=== PATIENT | female | born 1955 | race Two or more races ===

== ENCOUNTER 2017-03-24 19:57 | Inpatient (IN) | payer OTHER ==
[~2017-03-24] VITALS: Ht 162.6 cm; Wt 78.5 kg
[~2017-03-24 19:57] MED LIST: ATOR20TA PO; CALC500T79 PO; ESOM40CA PO; FERR-58 PO; GABA300C PO; GEMF600T PO; GLYB1TAB2 PO; IBUP-785 PO; LORA0.5T PO; LORA10TA41 PO; LORA10TA50 PO; MECL-102 PO; METF850T2 PO; METO-302 PO; OMEP40CA37 PO; PARO20TA51 PO; PROP10TA10 PO; SIMV20TA6 PO; TAMO10TA4 PO; VENL75TA54 PO
[2017-03-24] MEDS ORDERED: IV NS 0.9% 1,000 ML BAG IV ONE ×3 (20:00→21:30)
[2017-03-24] MEDS ORDERED: ONDANSETRON HCL/PF 4 MG/2 ML VIAL IVP ONE (20:00)
--- NOTE | 2017-03-24 20:02 | NUR ---
PT NAYE FROM HOME TO ER BED 09. PRESENTS W/ FLU LIKE SYMPTOMS THAT STARTED THIS AM. PT TEMP 103 ORAL. PT IS TACHYCARDIC, DIAPHORETIC MEDICAL OFFICE MANAGER. ALSO C/O NAUSEA AND VOMITING. GOWNED AND PLACED ON MONITOR. AWAITING MD RIDER.
--- NOTE | 2017-03-24 20:05 | NUR ---
.DR HARDWICK AT BEDSIDE FOR EVAL
[2017-03-24] MEDS ORDERED: ONDANSETRON HCL/PF 4 MG/2 ML VIAL ONE (20:06)
--- NOTE | 2017-03-24 20:11 | NUR ---
IV LINE STARTED BLOOD DRAWN AND SENT TO LAB.
[2017-03-24 20:15] LABS: BASOPHILS # (AUTO) 0.1 /CMM (0.0-0.2); EOSINOPHILS % (AUTO) 0.2 % (0.0-6.0); HEMATOCRIT 40 % (33-45); HEMOGLOBIN 12.8 g/dL (11.5-14.8); LYMPHOCYTES # (AUTO) 1.4 /CMM (0.8-4.8); LYMPHOCYTES % (AUTO) 23.3 % (20.0-44.0); MEAN CORPUSCULAR HEMOGLOBIN 26 PG (26.0-33.0); MEAN CORPUSCULAR HGB CONC 32 g/dl (31.0-36.0); MEAN CORPUSCULAR VOLUME 79 fL (82-100); MONOCYTES % (AUTO) 0.5 % (2.0-12.0); NEUTROPHILS # (AUTO) 4.5 /CMM (1.8-8.9); PLATELET COUNT (AUTO) 222 /CMM (150-450); RDW COEFFICIENT OF VARIATION 16.5 (11.5-15.0)
--- NOTE | 2017-03-24 20:19 | NUR ---
RADIOLOGY AT BEDSIDE FOR CHEST XRAY.
[2017-03-24 20:30] LABS: CALCIUM, SERUM 10.1 mg/dL (8.5-10.1); CARBON DIOXIDE 21 mmol/L (21-32); CHLORIDE 104 mmol/L (98-107); CREATININE 1.2 mg/dL (0.6-1.3); GLUCOSE 115 mg/dL (74-106); POTASSIUM 3.6 mmol/L (3.5-5.1); SODIUM SERUM 139 mmol/L (136-145); UREA NITROGEN, BLOOD 9 mg/dL (7-18)
[2017-03-24 20:33] LABS: INR 0.99 (0.87-1.13); PROTHROMBIN TIME 10.3 SECS (9.5-12.7)
[2017-03-24 20:36] LABS: ALANINE AMINOTRANSFERASE 62 U/L (12-78); ALKALINE PHOSPHATASE 94 U/L (46-116); ASPARTATE AMINOTRANSFERASE 32 U/L (15-37); BILIRUBIN,DIRECT 0.2 mg/dL (0.0-0.2); BILIRUBIN,TOTAL 0.6 mg/dL (0.2-1.0); TOTAL PROTEIN, SERUM 8.8 g/dL (6.4-8.2)
[2017-03-24 20:38] LABS: TROPONIN I < 0.017 ng/mL (0.00-0.056)
[2017-03-24] MEDS ORDERED: CEFTRIAXONE 1GM BAG (ER ONLY) 50 ML IV ONE ×2 (20:45→21:00)
[2017-03-24] MEDS ORDERED: ACETAMINOPHEN ES 500 MG TABLET ONE (20:45)
[2017-03-24] MEDS ORDERED: ACETAMINOPHEN ES 500 MG TABLET PO ONE (21:00)
[2017-03-24 21:05] LABS: APPEARANCE,URINE Clear (CLEAR); BILIRUBIN,URINE Negative (NEGATIVE); BLOOD, URINE Moderate Ery/uL (NEGATIVE); COLOR,URINE Yellow (YELLOW); KETONES,URINE Trace (NEGATIVE); LEUKOCYTE ESTERASE ,URINE Small (NEGATIVE); NITRITE, URINE Positive (NEGATIVE); PROTEIN,URINE >=300 mg/dl (NEGATIVE); UGLUCOSE 500 MG/DL mg/dL (NEGATIVE); UROBILINOGEN,URINE 0.2 EU/dL (0.2)
--- NOTE | 2017-03-24 21:08 | NUR ---
PAGED DR NOVAK FOR PANEL ADMISSION
--- NOTE | 2017-03-24 21:08 | NUR ---
DR NOVAK CALLED BACK, TRANSFERRED CALL TO DR HARDWICK
--- NOTE | 2017-03-24 21:10 | NUR ---
CALLED NURSING GRAB SETTER FOR TELE BED
--- NOTE | 2017-03-24 21:17 | NUR ---
ORAL TEMP RECHECK 99.8
[2017-03-24 21:26] LABS: CLINITEST,URINE 1%
[2017-03-24 21:27] LABS: BACTERIA,URINE Moderate /HPF (None Seen); SQUAMOUS EPITHELIAL CELL,UR Few /HPF (None Seen)
[2017-03-24] MEDS ORDERED: INSULIN REGULAR, HUMAN 100 UNIT/ML 3 ML VIAL SQ PRN (21:30)
[2017-03-24] MEDS ORDERED: LEVOFLOXACIN 750 MG /D5W 150ML 750 MG in PREMIX 1 EA IV SCH (21:30)
[2017-03-24] MEDS ORDERED: LORAZEPAM 0.5 MG TABLET PO PRN (21:30)
[2017-03-24] MEDS ORDERED: OSELTAMIVIR PHOSPHATE 75 MG CAPSULE PO ONE (21:30)
[2017-03-24] MEDS ORDERED: DEXTROSE 50%-WATER 50 ML DISP.SYRIN IV PRN (21:30)
[2017-03-24] MEDS ORDERED: TAMOXIFEN CITRATE 10 MG TABLET PO SCH (21:30)
[2017-03-24] MEDS ORDERED: MORPHINE SULFATE INJ 2 MG/ML DISP.SYRIN IV PRN (21:30)
[2017-03-24] MEDS ORDERED: ZOLPIDEM TARTRATE 5 MG TABLET PO PRN (21:30)
[2017-03-24] MEDS ORDERED: ONDANSETRON HCL/PF 4 MG/2 ML VIAL IVP PRN (21:30)
--- NOTE | 2017-03-24 21:53 | NUR ---
REPORT GIVEN TO PEYTON. PT AWAITING TRANSFER TO FLOOR.
[2017-03-24 22:40] VITALS: BP 114/58
[2017-03-24 22:53] VITALS: BP 114/58
[2017-03-24] MEDS ORDERED: OSELTAMIVIR PHOSPHATE 75 MG CAPSULE ONE (23:01)
[2017-03-24] MEDS ORDERED: LEVOFLOXACIN 750 MG /D5W 150ML 150 ML IV ONE (23:06)
--- NOTE | 2017-03-24 23:15 | NUR ---
BLAST FURNACE BLOWER NOTE ADMITTED 61 YEARS OLD FEMALE PT FROM ER WITH THE DX OF SEPSIS BY DR NOVAK. PT IS A/O X 3 VIETNAMESE SPEAKING, BUT UNDERSTAND ESTONIAN. PT WITH TEMP NOTED. ER GAVE TYLENOL EARLIER, WILL CONTINUE TO MONITOR HER. NO SOB, NO DISTRESS OR DISCOMFORT NOTED. DENIES PAIN. ON TELE SINUS TACH HR 101. H/L IN RAC #18 G INTACT AND PATENT. ADMITTING ORDERS CHECKED AND CARRIED OUT. SKIN INTACT. FAMILY AT BED SIDE. SIDE RAILS UP X 2 AND CALL LIGHT WITHIN REACH. CONTINUE TO MONITOR HER.
[2017-03-24 23:20] VITALS: BP 99/52
[2017-03-24] MEDS: BLOOD SUGAR DIAGNOSTIC 1 EACH STRIP IN SCH (23:50)
--- NOTE | 2017-03-24 23:55 | NUR ---
FIELD SERVICE ENGINEER NOTE DR NOVAK INFORMED LACTIC ACID 4.3 NO NEW ORDER GIVEN. BS 202, PT STATES "I DID NOT EAT ANY THING ALL DAY AND DUE TO VOMITING". PER DR NOVAK DON'T GIVE COVERAGE AT THIS TIME AND CHECK BS IN THE MORNING.
[2017-03-25] VITALS (7 sets, daily range): BP systolic 91–113; BP diastolic 40–54
[2017-03-25] MEDS: BLOOD SUGAR DIAGNOSTIC 1 EACH STRIP IN SCH ×4 (06:02→21:38)
[2017-03-25 06:40] LABS: BASOPHILS % (AUTO) 0.3 % (0.0-2.0); EOSINOPHILS % (AUTO) 0.1 % (0.0-6.0); HEMATOCRIT 32 % (33-45); HEMOGLOBIN 10.8 g/dL (11.5-14.8); LYMPHOCYTES % (AUTO) 12.2 % (20.0-44.0); MEAN CORPUSCULAR HEMOGLOBIN 27 PG (26.0-33.0); MEAN CORPUSCULAR HGB CONC 33 g/dl (31.0-36.0); MEAN CORPUSCULAR VOLUME 80 fL (82-100); MONOCYTES # (AUTO) 0.8 /CMM (0.1-1.30); NEUTROPHILS # (AUTO) 13.6 /CMM (1.8-8.9); NEUTROPHILS % (AUTO) 82.4 % (43.0-81.0); PLATELET COUNT (AUTO) 171 /CMM (150-450); RDW COEFFICIENT OF VARIATION 17.3 (11.5-15.0); RED BLOOD CELL COUNT(AUTO) 4.04 MIL/uL (4.0-5.2); WHITE BLOOD COUNT (AUTO) 16.5 K/uL (4.3-11.0)
--- NOTE | 2017-03-25 06:44 | NUR ---
RN HOME HEALTH NOTE NO CHANGE IN CONDITION. PT ASLEEP, AROUSABLE. NO DISTRESS OR DISCOMFORT NOTED. DENIES PAIN. S/L INTACT AND PATENT. ON TELE SR 74. SIDE RAILS UP X 2 AND CALL LIGHT WITHIN REACH. WILL ENDORSE TO DAY SHIFT NURSE FOR CONTINUE TO CARE.
[2017-03-25 06:59] LABS: TROPONIN I < 0.017 ng/mL (0.00-0.056)
[2017-03-25 07:13] LABS: ALANINE AMINOTRANSFERASE 58 U/L (12-78); ALBUMIN 2.8 g/dL (3.4-5.0); ALKALINE PHOSPHATASE 71 U/L (46-116); ASPARTATE AMINOTRANSFERASE 34 U/L (15-37); BILIRUBIN,TOTAL 0.4 mg/dL (0.2-1.0); CALCIUM, SERUM 8.4 mg/dL (8.5-10.1); CARBON DIOXIDE 26 mmol/L (21-32); CHLORIDE 105 mmol/L (98-107); CREATININE 0.8 mg/dL (0.6-1.3); GLUCOSE 135 mg/dL (74-106); POTASSIUM 3.5 mmol/L (3.5-5.1); SODIUM SERUM 141 mmol/L (136-145); TOTAL PROTEIN, SERUM 6.9 g/dL (6.4-8.2); UREA NITROGEN, BLOOD 8 mg/dL (7-18)
[2017-03-25 07:18] LABS: INR 1.04 (0.87-1.13); PROTHROMBIN TIME 11.2 SECS (9.5-12.7)
[2017-03-25 07:52] LABS: CREATINE KINASE MB 0.7 ng/mL (0-3.6)
[2017-03-25] MEDS: GEMFIBROZIL 600 MG TABLET PO SCH (09:00)
[2017-03-25] MEDS: PAROXETINE HCL 20 MG TABLET PO SCH ×2 (09:00→10:24)
[2017-03-25] MEDS: METOPROLOL SUCCINATE 25 MG TAB.SR.24H PO SCH (09:00)
[2017-03-25] MEDS: GABAPENTIN 300 MG CAPSULE PO SCH ×2 (09:00→10:24)
[2017-03-25] MEDS ORDERED: MECLIZINE HCL 25 MG TABLET PO SCH (09:00)
[2017-03-25] MEDS: FERROUS SULFATE (325 MG) 325 MG/TAB TABLET PO SCH ×3 (09:00→17:00)
[2017-03-25] MEDS: VENLAFAXINE 37.5 MG TABLET PO SCH (09:49)
[2017-03-25] MEDS: PANTOPRAZOLE 40 MG VIAL IV SCH (10:24)
[2017-03-25] MEDS: LORATADINE 10 MG TABLET PO SCH (10:25)
[2017-03-25] MEDS: METFORMIN 850 MG TABLET PO SCH ×2 (10:46→17:41)
[2017-03-25] MEDS ORDERED: FEE PK DOSING 1 MIN EA MC ONE (10:50)
[2017-03-25] MEDS: VANCOMYCIN 1 GM in IV D5W 250 ML IV SCH (12:21)
[2017-03-25] MEDS ORDERED: MECLIZINE HCL 25 MG TABLET PO PRN (12:57)
[2017-03-25] MEDS: PROPRANOLOL HCL 10 MG TABLET PO SCH (12:58)
[2017-03-25] MEDS ORDERED: MAGNESIUM HYDROXIDE 30 ML UDC PO PRN (18:00)
[2017-03-25] MEDS ORDERED: SIMVASTATIN 20 MG TABLET PO SCH (18:00)
--- NOTE | 2017-03-25 19:15 | NUR ---
RN INITIAL NOTES RECEIVED PATIENT IN BED, AWAKE AND ALERT. PATIENT IS AMBULATORY WITH STEADY GAIT NOTED. ASSISTED WITH ADLS NEEDED. PATIENT DENIES ANY PAIN AND DISCOMFORT. SR ON TELE WITH HR OF 85. ON ROOM AIR, RESPIRATION IS EVEN AND UNLABORED WITH NO DISTRESS. WITH R AC, G18, FLUSHED AND PATENT, NO SIGNS OF INFILTRATION. PATIENT'S NEEDS ANTICIPATED AND MET. SAFETY AND COMFORT ENSURED. BED IN LOW AND LOCKED POSITION. CALL LIGHT IN REACH. WILL MONITOR.
[2017-03-25] MEDS: LEVOFLOXACIN 750 MG /D5W 150ML 750 MG in PREMIX 1 EA IV SCH (21:25)
[2017-03-25] MEDS: ACETAMINOPHEN 325 MG TABLET PO PRN (21:28)
[2017-03-25] MEDS: DOCUSATE SODIUM 250 MG CAPSULE PO SCH (21:38)
--- NOTE | 2017-03-25 21:40 | NUR ---
RN NOTES CZ=[id number]. PATIENT REFUSED INSULIN TO BE ADMINISTERED. PER PATIENT, SHE IS TAKING PO ANTI DIABETIC MEDICATIONS AND THOSE WERE THE ONES THAT HER SPECIALIST HAS RECOMMENDED. PATIENT'S RIGHTS RESPECTED. PATIENT IS ALERT AND ORIENTED X4, AWARE AND KNOWLEDGEABLE OF HER MEDICATIONS. CN MADE AWARE.
--- NOTE | 2017-03-25 23:37 | NUR ---
RN NOTES PATIENT IN BED, NO DISTRESS. DVT PUMPS IN PLACE. NC AT 2LPM OF O2 VIA NC PLACED FOR COMFORT. PATIENT'S NEEDS ANTICIPATED AND MET. SAFETY AND COMFORT ENSURED. CALL LIGHT IN REACH.
[2017-03-26] VITALS: BP 112/62
[2017-03-26] MEDS: VANCOMYCIN 1 GM in IV D5W 250 ML IV SCH ×2 (00:28→11:52)
[2017-03-26 04:00] VITALS: BP 99/50
--- NOTE | 2017-03-26 06:37 | NUR ---
RN CLOSING NOTES PATIENT WITH NO ACUTE CHANGE IN CONDITION OBSERVED OVERNIGHT. REMAINS SR ON TELE. PATIENT'S NEEDS ANTICIPATED AND MET. SAFETY AND COMFORT ENSURED. BED IN LOW AND LOCKED POSITION. ALL DUE MEDS GIVEN ORDERED. WILL ENDORSED ACCORDINGLY FOR CONTINUITY OF CARE.
[2017-03-26 06:58] LABS: CALCIUM, SERUM 8.5 mg/dL (8.5-10.1); CREATININE 0.7 mg/dL (0.6-1.3); POTASSIUM 3.4 mmol/L (3.5-5.1)
[2017-03-26 08:00] VITALS: BP 106/62
--- NOTE | 2017-03-26 08:00 | NUR ---
TELE1/RN AM SHIFT INITIAL NOTES RECEIVED PT ASLEEP IN BED, AROUSEABLE, PT A/O X 4, NO ACUTE CHANGE OF CONDITION. PT DENIES ANY PAIN, NO COMPLAINTS. ON CURTIS AIR SATURATING @ 93%, LUNG SOUNDS CLEAR. ON TELE WITH SINUS RHYTHM, HR 86. IV SITE FLUSHED, PATENT, NO S/S OF INFECTION, SL. BLOOD GLUCOSE CHECKED, RESULT 128, NO COVERAGE TO BE GIVEN PER INSULIN PROTOCOL. PT IS COMFORTABLE AT THIS TIME. SCHEDULED AM MEDS TO BE GIVEN. CL WITHIN REACHED, SAFETY MAINTAINED AND ISOLATION OBSERVED. ON GOING MONITORING.
[2017-03-26] MEDS: BLOOD SUGAR DIAGNOSTIC 1 EACH STRIP IN SCH ×4 (08:04→21:24)
[2017-03-26] MEDS: PANTOPRAZOLE 40 MG VIAL IV SCH (08:38)
[2017-03-26] MEDS: FERROUS SULFATE (325 MG) 325 MG/TAB TABLET PO SCH ×2 (08:38→16:54)
[2017-03-26] MEDS: PAROXETINE HCL 20 MG TABLET PO SCH (08:39)
[2017-03-26] MEDS: LORATADINE 10 MG TABLET PO SCH (08:39)
[2017-03-26] MEDS: VENLAFAXINE 37.5 MG TABLET PO SCH (08:39)
[2017-03-26] MEDS: METOPROLOL SUCCINATE 25 MG TAB.SR.24H PO SCH (08:39)
[2017-03-26] MEDS: GABAPENTIN 300 MG CAPSULE PO SCH (08:40)
[2017-03-26] MEDS: METFORMIN 850 MG TABLET PO SCH ×2 (08:40→16:54)
[2017-03-26] MEDS: GEMFIBROZIL 600 MG TABLET PO SCH (08:40)
[2017-03-26] MEDS: PROPRANOLOL HCL 10 MG TABLET PO SCH (08:40)
[2017-03-26] MEDS: ATORVASTATIN 10 MG TABLET PO SCH (08:43)
--- NOTE | 2017-03-26 11:50 | NUR ---
TELE1/RN BLOOD GLUCOSE CHECK NO ACUTE CHANGE OF CONDITION. BLOOD GLUCOSE CHECKED, RESULT 169. PT REFUSED INSULIN COVERAGE. NO S/S OF HYPO OR HYPERGLYCEMIA. ON GOING MONITORING.
[2017-03-26 12:00] VITALS: BP 128/77
[2017-03-26] MEDS ORDERED: POTASSIUM CHLORIDE 20 MEQ TAB.PRT.SR PO SCH (12:00)
--- NOTE | 2017-03-26 12:45 | NUR ---
TELE1/RN ROUNDS - RON, MARY PT SEEN & EXAMINED BY RON HERNANDEZ. NO NEW ORDERS RECEIVED AT THIS TIME. NO CHANGE OF CONDITION. MONITORING CONTINUED.
[2017-03-26] MEDS ORDERED: MAGNESIUM HYDROXIDE 30 ML UDC PO ONE (13:30)
[2017-03-26 16:00] VITALS: BP 119/67
[2017-03-26] MEDS: ACETAMINOPHEN 325 MG TABLET PO PRN (17:51)
--- NOTE | 2017-03-26 19:22 | NUR ---
TELE1/RN AM SHIFT END NOTES ALL NEEDS MET. NO ACUTE CHANGE OF CONDITION NOTED DURING SHIFT. IV SITE INTACT AND PATENT. PT ENDORSED TO PM NURSE TO CONTINUE CARE. CL WITHIN REACHED AND SAFETY MAINTAINED.
--- NOTE | 2017-03-26 19:30 | NUR ---
TELE1/RN PM SHIFT INITIAL NOTES RECEIVED PT AWAKE IN BED, PT A/O X 4, NO ACUTE CHANGE OF CONDITION. PT DENIES ANY PAIN, NO COMPLAINTS. ON ROOM AIR SATURATING @ 95%, LUNG SOUNDS CLEAR. ON TELE WITH SINUS RHYTHM, HR 86. IV SITE FLUSHED, PATENT, NO S/S OF INFECTION, SL. PT IS COMFORTABLE AT THIS TIME. SCHEDULED AM MEDS TO BE GIVEN. CL WITHIN REACHED, SAFETY MAINTAINED AND ISOLATION OBSERVED. ON GOING MONITORING.
[2017-03-26 20:00] VITALS: BP 123/63
[2017-03-26] MEDS: DOCUSATE SODIUM 250 MG CAPSULE PO SCH (21:24)
[2017-03-26] MEDS: LEVOFLOXACIN 750 MG /D5W 150ML 750 MG in PREMIX 1 EA IV SCH (21:24)
[2017-03-27] VITALS: BP 123/63
[2017-03-27] MEDS: VANCOMYCIN 1 GM in IV D5W 250 ML IV SCH ×2 (00:27→11:43)
[2017-03-27 04:00] VITALS: BP 133/81
--- NOTE | 2017-03-27 06:12 | NUR ---
TUMBLER TENDER NOTE PATIENT STABLE. ALL NEEDS MET AND ATTENDED TO. WILL ENDORSE TO DAY SHIFT FOR NICOLAS.
[2017-03-27 06:30] LABS: BASOPHILS % (AUTO) 0.2 % (0.0-2.0); EOSINOPHILS # (AUTO) 0.2 /CMM (0.0-0.7); EOSINOPHILS % (AUTO) 2.8 % (0.0-6.0); HEMATOCRIT 34 % (33-45); HEMOGLOBIN 11.1 g/dL (11.5-14.8); LYMPHOCYTES # (AUTO) 2.4 /CMM (0.8-4.8); LYMPHOCYTES % (AUTO) 30.4 % (20.0-44.0); MEAN CORPUSCULAR HEMOGLOBIN 26 PG (26.0-33.0); MEAN CORPUSCULAR HGB CONC 33 g/dl (31.0-36.0); MEAN CORPUSCULAR VOLUME 79 fL (82-100); MONOCYTES # (AUTO) 0.9 /CMM (0.1-1.30); NEUTROPHILS # (AUTO) 4.3 /CMM (1.8-8.9); NEUTROPHILS % (AUTO) 55.6 % (43.0-81.0); PLATELET COUNT (AUTO) 169 /CMM (150-450); RDW COEFFICIENT OF VARIATION 17.4 (11.5-15.0); RED BLOOD CELL COUNT(AUTO) 4.24 MIL/uL (4.0-5.2); WHITE BLOOD COUNT (AUTO) 7.8 K/uL (4.3-11.0)
[2017-03-27] MEDS: BLOOD SUGAR DIAGNOSTIC 1 EACH STRIP IN SCH ×2 (06:31→11:49)
--- NOTE | 2017-03-27 06:33 | NUR ---
telecommunications administrator note blood sugar 166. Patient refusing insulin coverage.
[2017-03-27 06:52] LABS: CALCIUM, SERUM 8.7 mg/dL (8.5-10.1); CREATININE 0.6 mg/dL (0.6-1.3); POTASSIUM 3.6 mmol/L (3.5-5.1)
--- NOTE | 2017-03-27 07:00 | NUR ---
RN INITIAL NOTE REPORT RECEIVED FROM JOSE PM SHIFT. PT A/O X4. RESTING COMFORTABLY. PT ON RA NO C/O SOB TELE SR 67. IV RAC # 18 SL. WILL CONTINUE TO MONITOR. ALL SAFETY MEASURES IN PLACE. PAIN 0/10.
[2017-03-27 08:00] VITALS: BP 124/76
[2017-03-27] MEDS: PANTOPRAZOLE 40 MG VIAL IV SCH (08:17)
[2017-03-27] MEDS: GEMFIBROZIL 600 MG TABLET PO SCH (08:17)
[2017-03-27] MEDS: LORATADINE 10 MG TABLET PO SCH (08:18)
[2017-03-27] MEDS: FERROUS SULFATE (325 MG) 325 MG/TAB TABLET PO SCH (08:18)
[2017-03-27] MEDS: METFORMIN 850 MG TABLET PO SCH (08:18)
[2017-03-27] MEDS: ATORVASTATIN 10 MG TABLET PO SCH (08:18)
[2017-03-27] MEDS: VENLAFAXINE 37.5 MG TABLET PO SCH (08:22)
[2017-03-27] MEDS: PROPRANOLOL HCL 10 MG TABLET PO SCH (08:22)
[2017-03-27] MEDS: PAROXETINE HCL 20 MG TABLET PO SCH (08:23)
[2017-03-27] MEDS: METOPROLOL SUCCINATE 25 MG TAB.SR.24H PO SCH (08:23)
[2017-03-27] MEDS: GABAPENTIN 300 MG CAPSULE PO SCH (08:23)
--- NOTE | 2017-03-27 08:27 | NUR ---
RN NOTE PT REFUSED B/P MEDICATIONS, WELL OTHER MEDICATIONS. DID NOT ADMINISTER PER PT SEE EMAR.
--- NOTE | 2017-03-27 11:29 | NUR ---
RN NOTE PT B.S. 162 DECLINED COVERAGE OF INSULIN. EDUCATED PT ON IMPORTANCE .
[2017-03-27] MEDS: ACETAMINOPHEN 325 MG TABLET PO PRN (11:55)
[2017-03-27 12:00] VITALS: BP 110/77
--- NOTE | 2017-03-27 13:31 | NUR ---
VENDING SERVICE TECHNICIAN NOTE PT DC HOME. TRANSPORTED VIA PRIVATE CAR BY . ID BAND AND IV REMOVED. ALL DC INSTRUCTIONS GIVEN. ALL QUESTIONS ANSWERED AND BELONGING LIST SIGNED. EDUCATED ON IMPORTANCE OF TAKE ABX 10 DAYS AND MAKING F/U APPT 1-2 WKS. SKIN INTACT. PT CLEAN AND DRY. WALKED PT OUT WITH . ALL ORDERS CARRIED OUT. RX FAXED TO PHARMACY AND GIVEN TO PT.
[2017-03-28] MEDS ORDERED: VANCOMYCIN 1.5 GM in IV D5W 500 ML IV SCH ×2
== END 2017-03-27 13:38 | disposition home or self-care (01) | DRG 720 ==
LOC: ER 19:58 → TELE1 21:32
PROVIDERS: ADMIT Internal Medicine; ATTEND Internal Medicine
DX: A41.9 Sepsis, unspecified organism (principal); R53.2 Functional quadriplegia; E44.0 Moderate protein-calorie malnutrition; E87.2 Acidosis; E11.40 Type 2 diabetes mellitus with diabetic neuropathy, unspecified; B96.20 Unspecified Escherichia coli [E. coli] as the cause of diseases classified elsewhere; D63.8 Anemia in other chronic diseases classified elsewhere; E66.9 Obesity, unspecified; E78.5 Hyperlipidemia, unspecified; F32.9 Major depressive disorder, single episode, unspecified; I10 Essential (primary) hypertension; Z79.899 Other long term (current) drug therapy; Z85.3 Personal history of malignant neoplasm of breast; R53.1 Weakness; K52.9 Noninfective gastroenteritis and colitis, unspecified; Z68.29 Body mass index [BMI] 29.0-29.9, adult; D50.9 Iron deficiency anemia, unspecified; N12 Tubulo-interstitial nephritis, not specified as acute or chronic; Z79.84 Long term (current) use of oral hypoglycemic drugs
CPT/HCPCS: 36415; 71010-TC; 80048-TC; 80053-TC; 80076-TC; 80202-TC; 81000-TC; 82553-TC; 82962-TC; 83605-TC; 84484-TC; 85025-TC; 85385-TC; 85610-TC; 85730-TC; 87040-TC; 87081-TC; 87086-TC; 87186-TC; 87400; 93307-TC; 97001-TC; A4216; C9113; J0696; J1815; J1956; J2405; J3370; J7030; J7040; J7060; J8597

== ENCOUNTER 2018-09-26 18:39 | Emergency (ER) | payer MEDICAID, OTHER ==
[~2018-09-26] VITALS: Ht 162.6 cm; Wt 72.6 kg
[~2018-09-26 18:39] MED LIST changes: -FERR-58 PO; +FERR325T24 PO; +LORA-588 PO; -LORA10TA50 PO; +METF-441 PO; -METF850T2 PO; -METO-302 PO; +METO-356 PO; +PARO-64 PO; -PARO20TA51 PO
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
[2018-09-26 21:32] VITALS: BP 120/67
[2018-09-26 21:53] LABS: BASOPHILS # (AUTO) 0.1 /CMM (0.0-0.2); BASOPHILS % (AUTO) 0.4 % (0.0-2.0); EOSINOPHILS % (AUTO) 0.1 % (0.0-6.0); HEMATOCRIT 43 % (33-45); HEMOGLOBIN 14.3 g/dL (11.5-14.8); LYMPHOCYTES # (AUTO) 2.1 /CMM (0.8-4.8); LYMPHOCYTES % (AUTO) 9.9 % (20.0-44.0); MEAN CORPUSCULAR HGB CONC 33 g/dl (31.0-36.0); MEAN CORPUSCULAR VOLUME 84 fL (82-100); MONOCYTES # (AUTO) 1.4 /CMM (0.1-1.30); MONOCYTES % (AUTO) 6.4 % (2.0-12.0); NEUTROPHILS # (AUTO) 17.9 /CMM (1.8-8.9); NEUTROPHILS % (AUTO) 83.2 % (43.0-81.0); PLATELET COUNT (AUTO) 237 /CMM (150-450); WHITE BLOOD COUNT (AUTO) 21.6 K/uL (4.3-11.0)
[2018-09-26 22:00] LABS: CALCIUM, SERUM 10.2 mg/dL (8.5-10.1); CARBON DIOXIDE 21 mmol/L (21-32); CHLORIDE 103 mmol/L (98-107); CREATININE 0.9 mg/dL (0.6-1.3); GLUCOSE 200 mg/dL (74-106); POTASSIUM 3.7 mmol/L (3.5-5.1); SODIUM SERUM 137 mmol/L (136-145); UREA NITROGEN, BLOOD 12 mg/dL (7-18)
[2018-09-26 22:06] LABS: ALANINE AMINOTRANSFERASE 68 U/L (12-78); ALBUMIN 3.7 g/dL (3.4-5.0); ALKALINE PHOSPHATASE 101 U/L (46-116); ASPARTATE AMINOTRANSFERASE 19 U/L (15-37); BILIRUBIN,DIRECT 0.1 mg/dL (0.0-0.2); BILIRUBIN,TOTAL 0.3 mg/dL (0.2-1.0); TOTAL PROTEIN, SERUM 7.6 g/dL (6.4-8.2)
[2018-09-26] MEDS ORDERED: CT SWABBABLE VALVE TRANS SET 1 EA INFUS.SET MC ONE (22:22)
[2018-09-26] MEDS ORDERED: IOHEXOL-300 100 ML VIAL IV ONE (22:22)
[2018-09-26 23:20] LABS: LYMPHOCYTES % (MANUAL) 12 % (16-48); MONOCYTES % (MANUAL) 7 % (0-11.0); NEUTROPHILS % (MANUAL) 81 (42-76)
--- NOTE | 2018-09-26 23:54 | NUR ---
PT IS GOING TO 115-1 TELE
== END 2018-09-27 00:15 | disposition home or self-care (01) ==
LOC: ER 18:42
DX: S29.012A Strain of muscle and tendon of back wall of thorax, initial encounter (principal); S16.1XXA Strain of muscle, fascia and tendon at neck level, initial encounter; S30.811A Abrasion of abdominal wall, initial encounter; E04.1 Nontoxic single thyroid nodule; D72.829 Elevated white blood cell count, unspecified; E11.9 Type 2 diabetes mellitus without complications; I10 Essential (primary) hypertension; E78.00 Pure hypercholesterolemia, unspecified; Z85.3 Personal history of malignant neoplasm of breast; Z98.890 Other specified postprocedural states; Z79.84 Long term (current) use of oral hypoglycemic drugs; Z79.899 Other long term (current) drug therapy; V43.64XA Car passenger injured in collision with van in traffic accident, initial encounter; Y93.89 Activity, other specified; Y92.413 State road as the place of occurrence of the external cause; Y99.8 Other external cause status
CPT/HCPCS: 36415; 70450; 71045; 72125; 74177; 80048; 80076; 84484; 85025; 85730; 99284; A4606; L0172; Q9967; Z7610

== ENCOUNTER 2018-12-29 10:14 | Emergency (ER) | payer OTHER ==
[~2018-12-29] VITALS: Ht 162.6 cm; Wt 74.8 kg
[2018-12-29 10:18] VITALS: BP 122/78
--- NOTE | 2018-12-29 10:30 | NUR ---
Patient discharged to home in stable condition. Written and verbal after care instructions given. Patient verbalizes understanding of instruction.
== END 2018-12-29 10:34 | disposition home or self-care (01) ==
LOC: ER 10:14
DX: L50.9 Urticaria, unspecified (principal); I10 Essential (primary) hypertension; E11.9 Type 2 diabetes mellitus without complications; E78.00 Pure hypercholesterolemia, unspecified; Z85.3 Personal history of malignant neoplasm of breast; Z98.890 Other specified postprocedural states
CPT/HCPCS: Z7502

== ENCOUNTER 2019-09-14 16:21 | Emergency (ER) | payer OTHER ==
[~2019-09-14] VITALS: Ht 157.5 cm; Wt 74.8 kg
[~2019-09-14 16:21] MED LIST changes: -MECL-102 PO; +MECL-159 PO; -METO-356 PO; +METO25TA4 PO; +OMEP40CA13 PO; -OMEP40CA37 PO; +SIMV-46 PO; -SIMV20TA6 PO; +TAMO10TA20 PO; -TAMO10TA4 PO
[2019-09-14 16:48] VITALS: BP 135/76
--- NOTE | 2019-09-14 16:56 | NUR ---
PT CAME INTO THE ED C/O GENERALIZED HIVES, +ITCHING. PT AAOX4, VSS, BREATHING EVEN AND UNLABORED ON ROOM AIR W/ NAD NOTED. PT CONENCTED TO THE MONITOR AND POX
[2019-09-14] MEDS ORDERED: diphenhydrAMINE HCL 50 MG/ML VIAL IM ONE (17:00)
[2019-09-14] MEDS ORDERED: DEXAMETHASONE SOD PHOSPHATE 10 MG/ML VIAL IM ONE (17:00)
[2019-09-14] MEDS ORDERED: DEXAMETHASONE SOD PHOSPHATE 10 MG/ML VIAL ONE (17:00)
[2019-09-14] MEDS ORDERED: diphenhydrAMINE HCL 50 MG/ML VIAL ONE (17:01)
--- NOTE | 2019-09-14 18:09 | NUR ---
Patient discharged to home in stable condition. Written and verbal after care instructions given. Patient verbalizes understanding of instruction.
== END 2019-09-14 18:10 | disposition home or self-care (01) ==
LOC: ER 16:22
DX: R21 Rash and other nonspecific skin eruption (principal); I10 Essential (primary) hypertension; E11.9 Type 2 diabetes mellitus without complications; Z98.890 Other specified postprocedural states; Z85.3 Personal history of malignant neoplasm of breast; Z79.899 Other long term (current) drug therapy; Z79.84 Long term (current) use of oral hypoglycemic drugs
CPT/HCPCS: 96372; 99283; J1100; J1200

== ENCOUNTER 2019-09-30 14:56 | Emergency (ER) | payer OTHER ==
[~2019-09-30] VITALS: Ht 165.1 cm; Wt 71.7 kg
[2019-09-30] MEDS ORDERED: KETOROLAC TROMETHAMINE 15 MG/ML VIAL ONE (15:44)
[2019-09-30 15:50] LABS: BASOPHILS # (AUTO) 0.1 /CMM (0.0-0.2); BASOPHILS % (AUTO) 0.6 % (0.0-2.0); EOSINOPHILS % (AUTO) 1.2 % (0.0-6.0); HEMATOCRIT 45 % (33-45); LYMPHOCYTES # (AUTO) 2.6 /CMM (0.8-4.8); LYMPHOCYTES % (AUTO) 26.8 % (20.0-44.0); MEAN CORPUSCULAR HGB CONC 33 g/dl (31.0-36.0); MEAN CORPUSCULAR VOLUME 91 fL (82-100); MONOCYTES # (AUTO) 0.6 /CMM (0.1-1.30); MONOCYTES % (AUTO) 5.9 % (2.0-12.0); NEUTROPHILS # (AUTO) 6.3 /CMM (1.8-8.9); NEUTROPHILS % (AUTO) 65.5 % (43.0-81.0); PLATELET COUNT (AUTO) 208 /CMM (150-450); RED BLOOD CELL COUNT(AUTO) 4.94 MIL/uL (4.0-5.2); WHITE BLOOD COUNT (AUTO) 9.5 K/uL (4.3-11.0)
[2019-09-30] MEDS: KETOROLAC TROMETHAMINE INJ 30 MG/ML VIAL IV ONE (15:57)
[2019-09-30 15:58] LABS: CALCIUM, SERUM 9.9 mg/dL (8.5-10.1); CREATININE 0.7 mg/dL (0.6-1.3); POTASSIUM 4.5 mmol/L (3.5-5.1)
--- NOTE | 2019-09-30 16:00 | NUR ---
patient came in to the er c/o lower back pain, non traumatic, also generalized rash. On rooma ir, breathing evenly and unlabored. connected to the monitor and pulse ox. kept comfortable, will continue to monitor accordingly.
[2019-09-30 16:03] LABS: ALBUMIN 3.8 g/dL (3.4-5.0); BILIRUBIN,DIRECT 0.1 mg/dL (0.0-0.2); BILIRUBIN,TOTAL 0.5 mg/dL (0.2-1.0); TOTAL PROTEIN, SERUM 7.6 g/dL (6.4-8.2)
[2019-09-30 17:02] LABS: APPEARANCE,URINE Clear (CLEAR); BILIRUBIN,URINE Negative (NEGATIVE); BLOOD, URINE Negative Ery/uL (NEGATIVE); COLOR,URINE Yellow (YELLOW); KETONES,URINE Negative (NEGATIVE); LEUKOCYTE ESTERASE ,URINE Negative (NEGATIVE); NITRITE, URINE Negative (NEGATIVE); PROTEIN,URINE Negative (NEGATIVE); UGLUCOSE 500 MG/DL mg/dL (NEGATIVE); UROBILINOGEN,URINE 0.2 EU/dL (0.2)
[2019-09-30 18:15] VITALS: BP 118/71
--- NOTE | 2019-09-30 18:16 | NUR ---
Patient discharged to home in stable condition. Written and verbal after care instructions given. Patient verbalizes understanding of instruction.IV removed. Catheter intact and site benign. Pressure and 4x4 applied to site. No bleeding noted.
== END 2019-09-30 18:15 | disposition home or self-care (01) ==
LOC: ER 15:00
DX: M54.5 Low back pain (principal); I10 Essential (primary) hypertension; E11.9 Type 2 diabetes mellitus without complications; E78.5 Hyperlipidemia, unspecified; F32.9 Major depressive disorder, single episode, unspecified; Z85.3 Personal history of malignant neoplasm of breast; Z98.890 Other specified postprocedural states; Z79.899 Other long term (current) drug therapy
CPT/HCPCS: 36415; 80048; 80076; 81001; 83690; 85025; 96374; 99283; J1885; 81000-TC

== ENCOUNTER 2024-08-14 14:01 | Emergency (ER) | payer MEDICARE, OTHER ==
[~2024-08-14] VITALS: Ht 162.6 cm; Wt 74.8 kg
[~2024-08-14 14:01] MED LIST changes: -LORA-588 PO; +LORA-672 PO; -OMEP40CA13 PO; +OMEP40CA21 PO
[2024-08-14 14:17] VITALS: BP 101/61; TEMP 98.7; O2SAT 97
[2024-08-14] MEDS: diphenhydrAMINE HCL 25 MG CAPSULE PO ONE (14:30)
[2024-08-14] MEDS: methylPREDNISolone ACETATE 80 MG/ML VIAL IM ONE (14:30)
[2024-08-14] MEDS ORDERED: methylPREDNISolone ACETATE 80 MG/ML VIAL ONE (14:36)
[2024-08-14] MEDS ORDERED: diphenhydrAMINE HCL 50 MG CAPSULE ONE (14:36)
[2024-08-14] MEDS ORDERED: PRED20TA PO (14:48)
[2024-08-14] MEDS ORDERED: AMOX-430 PO (14:48)
== END 2024-08-14 15:01 | disposition home or self-care (01) ==
LOC: ER 14:12
DX: T78.40XA Allergy, unspecified, initial encounter (principal); H66.93 Otitis media, unspecified, bilateral; L50.9 Urticaria, unspecified; I10 Essential (primary) hypertension; E11.9 Type 2 diabetes mellitus without complications; Z79.84 Long term (current) use of oral hypoglycemic drugs; Z79.899 Other long term (current) drug therapy; Z85.3 Personal history of malignant neoplasm of breast; X58.XXXA Exposure to other specified factors, initial encounter
CPT/HCPCS: 99283; 96372; J1010; Q0163

== ENCOUNTER 2024-09-17 13:30 | Emergency (ER) | payer MEDICARE, OTHER ==
[~2024-09-17] VITALS: Ht 162.6 cm; Wt 72.6 kg
[~2024-09-17 13:30] MED LIST changes: +AMOX-430 PO; +PRED20TA PO
[2024-09-17 15:36] VITALS: BP 110/54; TEMP 97.9; O2SAT 100
[2024-09-17] MEDS ORDERED: DIPH25CA83 PO (15:56)
[2024-09-17] MEDS ORDERED: PRED20TA PO (15:56)
[2024-09-17] MEDS ORDERED: FAMO40TA7 PO (15:56)
== END 2024-09-17 16:01 | disposition home or self-care (01) ==
LOC: ER 13:49
DX: L50.9 Urticaria, unspecified (principal); K21.9 Gastro-esophageal reflux disease without esophagitis; E11.9 Type 2 diabetes mellitus without complications; I10 Essential (primary) hypertension; Z79.52 Long term (current) use of systemic steroids; Z79.84 Long term (current) use of oral hypoglycemic drugs; Z79.899 Other long term (current) drug therapy; Z85.3 Personal history of malignant neoplasm of breast; Z87.39 Personal history of other diseases of the musculoskeletal system and connective tissue; Z86.59 Personal history of other mental and behavioral disorders

== ENCOUNTER 2024-10-22 10:49 | Emergency (ER) | payer MEDICARE, OTHER ==
[~2024-10-22] VITALS: Ht 162.6 cm; Wt 72.1 kg
[~2024-10-22 10:49] MED LIST changes: +DIPH25CA83 PO; +FAMO40TA7 PO
[2024-10-22 10:51] VITALS: TEMP 98.3
[2024-10-22] MEDS ORDERED: FAMOTIDINE (20 MG) 20 MG TABLET ONE (11:24)
[2024-10-22] MEDS ORDERED: KETOROLAC TROMETHAMINE INJ 30 MG/ML VIAL ONE (11:24)
[2024-10-22] MEDS ORDERED: dexaMETHasone SOD PHOSPHATE 1 ML ONE (11:24)
[2024-10-22] MEDS ORDERED: METHOCARBAMOL (500MG) 500 MG TABLET ONE (11:25)
[2024-10-22] MEDS: METHOCARBAMOL (750MG) 750 MG TABLET PO SCH (11:41)
[2024-10-22] MEDS: FAMOTIDINE (20 MG) 20 MG TABLET PO ONE (11:42)
[2024-10-22] MEDS: dexaMETHasone SOD PHOSPHATE 4 MG/ML VIAL IM ONE (11:44)
[2024-10-22] MEDS: KETOROLAC TROMETHAMINE INJ 30 MG/ML VIAL IM ONE (11:44)
[2024-10-22] MEDS ORDERED: TIZA4TAB5 PO (11:56)
[2024-10-22] MEDS ORDERED: FAMO-131 PO (11:56)
[2024-10-22 12:15] VITALS: BP 119/63
[2024-10-22 12:22] VITALS: O2SAT 97
== END 2024-10-22 12:32 | disposition home or self-care (01) ==
LOC: ER 11:00
DX: T78.08XA Anaphylactic reaction due to eggs, initial encounter (principal); T78.09XA Anaphylactic reaction due to other food products, initial encounter; L50.9 Urticaria, unspecified; M54.50 Low back pain, unspecified; E11.9 Type 2 diabetes mellitus without complications; I10 Essential (primary) hypertension; Z79.52 Long term (current) use of systemic steroids; Z79.84 Long term (current) use of oral hypoglycemic drugs; Z79.899 Other long term (current) drug therapy; Z85.3 Personal history of malignant neoplasm of breast; Y92.89 Other specified places as the place of occurrence of the external cause
CPT/HCPCS: 99284; 96372 ×2; J1885; J1100